=== PATIENT | female | born 1975 | race African-American/Black ===

== ENCOUNTER 2025-05-27 15:25 | Inpatient (IN) | payer OTHER, SELFPAY ==
[2025-05-27] VITALS (9 sets, daily range): BP systolic 120–151; BP diastolic 84–101; BMI 35.6
--- NOTE | 2025-05-27 10:44 | ED.GENMED ---
History of Present Illness
General
Chief Complaint: Change in Mental Status
Source: patient and other (Bedside RN)
Time Seen by Provider: 05/27/25 10:15
History of Present Illness
History of Present Illness:
This patient is a 49-year-old female presents emergency department with reported confusion. As per bedside RN who took report from EMS, the patient wandered into [facility] looking for her mother. However, she also recalls being with her
mother this morning, and cannot explain why she also thought her mother was in another location. History is very limited from patient. She answers only some questions and is noted to be yawning frequently. Accu-Chek via EMS was 93 and she was
reportedly incontinent. No tonic-clonic seizure activity reported. Patient does have a history of seizures.
Past History
Past History
ED Past Medical History: Other (Seizures, hypertension, diabetes)
Social History
Tobacco: Non-smoker
Alcohol: None
Drug: None
Living: with family
Phy Exam
Physical Exam
Physical Exam:
GENERAL: Alert , in no apparent distress, frequently yawns
EYE: pupils equal and reactive, EOMI, no photophobia
NECK: Supple, no significant adenopathy.
ENT: o/p clr, mmm.
CARDIAC: Regular rate and rhythm .
LUNGS: Clear breath sounds bilaterally, no acute respiratory distress, no wheezes/rales/rhonchi
ABDOMEN: Soft, without focal tenderness, no r/g
NEUROLOGICAL: Awake, speech clear, no facial droop, moves all extremities equally. Slow to answer many questions. Initially was incorrect regarding date. Initially was correct regarding location to the RN but was incorrect when describing her
location to me.
SKIN: Warm and dry, skin intact.
MUSCULOSKELETAL: No edema, well perfused.
PSYCH: Limited answering of questions, stares ahead often, otherwise normal and appropriate interaction.
Sepsis
Sepsis Screening
Sepsis Assessment: Sepsis Ruled Out
Sepsis Screen
Sepsis Screen: Sepsis Ruled Out
Date: 05/31/25
Time: 10:22
Course
Orders/Labs/Results
Orders:
Orders
05/27/25 05:25
Urine Drug Abuse Screen Urgent
Date Specimen was Collected: 05/29/25
Time Specimen was Collected: 05:24
05/27/25 10:27
CT Head W/o Iv Contrast Urgent
Comment:
Reason For Exam: mental status change
05/27/25 10:31
EKG [Electrocardiogram (*1)] Urgent
Reason for Study: Chest Pain
EKG- Treatment ONCE
05/27/25 10:33
Alcohol Urgent
C-Reactive Protein Urgent
Comment: ADD
Complete Blood Count/With Diff Urgent
Comprehensive Metabolic Panel Urgent
Erythrocyte Sed Rate Urgent
Comment: ADD
Ferritin Urgent
Comment: ADD
Folate Urgent
Comment: ADD
PTT Urgent
TSH Reflex To Free T4 Urgent
Comment: ADD
Vitamin B12 Urgent
Comment: ADD
05/27/25 12:36
EEG Routine Urgent
Reason for Exam: mental status change
05/27/25 12:52
Add On- LAB Routine
Tests Added?: folate, ferritin, TSH reflex, B12, ESR, ammonia
05/27/25 12:53
Levetiracetam Injectable [Keppra] 3,000 mg IV NOW STA
05/27/25 13:11
Ammonia Urgent
05/27/25 14:00
Thiamine HCl [Vitamin B1] 100 mg PO DAILY
05/27/25 14:55
Admit/Transfer Patient As Directed
Co-Sign Provider:
Level of Care: Inpatient admission
Assign to:: Telemetry
Physician / Group: hortencia kang
Diagnosis: acute confusion, seizure hx schizophrenia
Reason for Telemetry: Arrhythmia
Date to Stop Telemetry: 05/30/25
Time to Stop Telemetry: 11:00
Reason for Hospitalization: confusion seizure schizophrenia
Expected length of stay greater than two midnights?: Yes
ELOS- Estimated Length of Stay in days: 3
I certify the patient meets the requirements for IP care: Yes
Code Status As Directed
Resuscitation Status: Full Code
05/27/25 14:59
PRN Pain Medication Management As Directed
May give lesser potent ordered pain med per pt: Yes
preference::
Protocol:: Medication orders for pain may be administered in a
manner that supports deferring to patient preference
when the pt is:
- Requesting an ordered lesser potent pain medication.
Least to most potent pain medications are defined
as: acetaminophen < NSAID < tramadol < opioids
(morphine, oxycodone, hydromorphone).
- Requesting a lesser dose of the same medication IF
ORDERED.
- Requesting a less intrusive route of administration
if both routes are prescribed by the provider (PO <
IV).
05/27/25 Dinner
Regular
At Your Request: Full Participation
Does patient need a safe tray?: No
05/27/25 15:16
Consult Psychiatry [PSYCHIATRY CONSULT] Routine
Consulting Provider: Abdoulaye Mitchell
Was physician already notified: Yes
Reason for consult: Confusion found wandering history schizophrenia and seizures
05/27/25 17:11
Acetaminophen [Tylenol] 650 mg PO Q4HPRN PRN
05/27/25 17:11
Case Management Consult ONCE
Case Management Consult: Discharge Planning
Requested By:: OTHER
Comment: pt found wandering from [place]. I spoke with Inez from [facility] who takes care of her
[phone] she will need to be called to help arrange aftercare as the pt lives alone in
[place] and her sibliings are
Activity As Directed
Activity Level: As Tolerated
Pneumatic Compression Sleeves As Directed
Type: Knee high
Vital Signs As Directed
Frequency: Per unit guidelines
Pt Eval And Treat Routine
Activity Level: As Tolerated
DX Deep Vein Thrombosis Video Routine
05/27/25 20:00
Levetiracetam Injectable [Keppra] 1,000 mg IV Q12
05/27/25 22:00
Sertraline HCl [Zoloft] 100 mg PO HS
05/28/25 06:25
Comprehensive Metabolic Panel IN AM
Magnesium IN AM
05/28/25 08:00
Amlodipine [Norvasc] 10 mg PO DAILY
Aripiprazole [Abilify] 10 mg PO DAILY
05/28/25 08:19
Complete Blood Count/With Diff IN AM
05/29/25 08:33
Complete Blood Count/With Diff IN AM
Comprehensive Metabolic Panel IN AM
05/30/25 07:39
MR Brain W/o & With Contrast Routine
Reason For Exam: change in mental status
Recent pill cam endoscopy?: No
05/30/25 07:57
Complete Blood Count/With Diff IN AM
Comprehensive Metabolic Panel IN AM
05/30/25 11:00
DC Protocol for Telemetry ONCE
Abnormal Lab Results
05/27/25 05/27/25
10:33 13:11
RBC 3.77 L 10^6/uL
(4.20-5.40)
Hgb 10.7 L g/dL
(12.0-16.0)
Hct 33.1 L %
(37.0-47.0)
MCHC 32.3 L g/dL
(33.0-37.0)
RDW 14.9 H %
(11.5-14.5)
Absolute Neuts (auto) 7.3 H 10^3/uL
(1.4-6.5)
Neutrophils % 76.4 H %
(42.2-75.2)
Lymphocytes % 16.8 L %
(20.5-51.1)
ESR 49 H mm/hour
(0-20)
Potassium 3.4 L mmol/L
(3.5-5.1)
BUN 18 H mg/dl
(7-17)
Creatinine 0.5 L mg/dL
(0.6-1.0)
AST 202 H U/L
(14-36)
Ammonia < 9 L umol/L
(9-30)
C-Reactive Protein 23.10 H mg/L
(0.0-10.00)
Folate > 20.0 H ng/ml
(2.76-20)
05/27/25 10:33
05/27/25 10:33
Vital Signs
Initial and Last Documented VS:
Initial Vital Signs
Pulse Resp BP Pulse Ox
103 22 127/88 96
05/27/25 10:15 05/27/25 10:15 05/27/25 10:15 05/27/25 10:15
Last Documented Vital Signs
Temp Pulse Resp BP Pulse Ox
97.9 F 85 20 154/101 99
05/31/25 07:30 05/31/25 07:30 05/31/25 07:30 05/31/25 07:30 05/31/25 07:30
*Pulse Oximetry
SaO2: 96
Oxygen Mode of Delivery: Room air
Patient hypoxic: no
*Critical Care Note
Total Time (30-74mins, 75-104mins- exclusive of procedures): Not Applicable
Update Note
Update Note:
Patient presents to the Emergency Department with _reported change in mental status
Number and Complexity of Problems Addressed at the Encounter
� Chronic conditions affecting care:
� Acute Exacerbation and/or Progression of Chronic Illness:
� Differential Diagnosis includes: But not limited to atypical seizure, electrolyte disorder, intracranial hemorrhage, etc. etc.
Amount and/or Complexity of Data to be Reviewed and Analyzed
� I performed an independent evaluation of and my interpretation is:
EKG: Read by me, normal sinus rhythm, normal rate, no acute ischemia
CT: Head read by radiology NAD
Xrays:
Laboratory Studies: Mild anemia at 10.7, no prior for comparison. Nonspecific mild AST elevation rest of LFTs are unremarkable. Minimal hypokalemia.
Other:
� Review of other/old records reveals: None available
� Clinical information was obtained by an independent historian: Patient gave me a phone number of her home however when I called it, I got an answering machine I did leave a message.
� Prescriptions/Medications Considered but not given:
� Further testing considered but not performed:
Risk of Complications and/or Morbidity or Mortality of Patient Management
� Social determinants of health affecting care:
� Discussion with other providers (PCP, Hospitalists, Consultants, etc):
� Escalation of care including admission/observation vs risk of discharge considered: 12:38 PM patient is much more conversant now, but still confused. She describes walking all night, but when I asked her more details she
states that she drove to [facility] to see her mother and the woman at the front door 'freaked out'. She is unclear who she lives with, and at one point told me it was her father, then at another point her siblings. She is unable to provide
other phone numbers for contact information. Case discussed with neurology via [place] text, I have ordered an EEG to rule out status and will continue closely monitoring.
1:26 PM Case discussed with hospitalist via [place] text for admission. EEG pending.
At this time, unclear specific etiology of patient's confusion although workup continues. She does not demonstrate signs of meningismus such as nuchal rigidity, photophobia, etc. Clinical suspicion low for infectious meningitis/encephalitis.
ED Attending Note
-
Portions of this chart may have been created with voice recognition software.� Occasional wrong word or��sound alike� substitutions may have occurred due to the inherent limitations of voice recognition software.
Discharge Plan
Departure
Patient Disposition: Admit
Date of Disposition: 05/27/25
Time of Disposition: 13:27
Admit to: Telemetry
Presentation/result/management discussed w/ accepting MD/DO: Hospitalist
Condition: Fair
Discharge Problem:
Altered mental status
Interventions
Interventions:
*Risk Screen - Suicide Last Done: 05/27/25 11:00
*General Assessment Last Done: 05/27/25 12:41
*Neglect/Abuse Screening Last Done: 05/27/25 12:42
*ED COVID-19 Vaccine History Last Done: 05/27/25 12:41
*Nursing Disposition Last Done: 05/27/25 17:15
ED-Psychological Assessment Last Done: 05/27/25 13:00
ED- Neurological Assessment Last Done: 05/27/25 15:57
ED Swallowing Screen Last Done: 05/27/25 15:57
Discharge Date and Time
Discharge Date/Time: 05/27/25 17:15
[2025-05-27 10:46] LABS: Hematocrit 33.1 % (37.0-47.0); Hemoglobin 10.7 g/dL (12.0-16.0); Mean Corp Hgb Conc. 32.3 g/dL (33.0-37.0); Mean Corpuscular Volume 87.8 fL (81.0-99.0); Nucleated Red Blood Cells % 0 %; Platelet Count 259 10^3/uL (130-400); Red Cell Dist. Width 14.9 % (11.5-14.5)
[2025-05-27 10:59] LABS: ALT (SGPT) 33 U/L (0-35); AST (SGOT) 202 U/L (14-36); Albumin 4.6 g/dl (3.5-5.0); Alkaline Phosphatase 77 U/L (38-126); Blood Urea Nitrogen 18 mg/dl (7-17); Calcium 9.3 mg/dl (8.4-10.2); Carbon Dioxide 22 mmol/L (22-30); Chloride 106 mmol/L (98-107); Glucose 95 mg/dl (70-99); Potassium 3.4 mmol/L (3.5-5.1); Sodium 138 mmol/L (135-145); Total Protein 7.9 g/dl (6.3-8.2); eGFR > 60.00
[2025-05-27 11:00] LABS: APTT 27.2 Sec (23.4-35.0)
--- NOTE | 2025-05-27 12:41 | CON.NEURO4 ---
Addendum entered and electronically signed by Ahsan Wilson MD 05/27/25 17:19:
Studies reviewed.
I have personally examined the patient. I reviewed and agree with the GARDEN TRACTOR MECHANIC's Note.
My addenda:
Awake, alert, interactive. No acute distress.
Speech halting with long pauses.
Follows 2-step requests w/o difficulty. No tremor.
Extra-ocular movements grossly intact.
Facial movements full and symmetric. Hearing intact to normal conversational volume.
Normal UE movements bilaterally.
Neck: full ROM.
Chest: no dyspnea
Heart: no JVD
Ext: (-) Clubbing, (-) Cyanosis, (-) Edema
IMPRESSIONS/RECOMMENDATIONS:
Abrupt onset of change in mental status
Etiology is unclear especially based on the patient's history of seizures as well as major depression with psychosis suggested by her use of aripiprazole. EEG did demonstrate sharp wave discharges, however, there was no evidence of recurrent
seizures
Load levetiracetam
Check MRI of brain
Attempt to obtain old records
Consider lumbar puncture based on MRI of brain results
Check blood work for metabolic abnormalities
Will continue to follow patient.
Original Note:
Consultation - Neurology 4
-
CONSULTING PHYSICIAN: Ahsan Wilson MD
REFERRING PHYSICIAN: ER/Dr. Becker
DICTATED BY: DIANNE Reyes
DATE/TIME OF REQUEST: 05/27/25
DATE/TIME OF CONSULTATION: 05/27/25
Reason for Consultation: Confusion
History of Present Illness:
This is a 49-year-old female who has presented to the hospital with confusion. Patient is unable to provide an accurate history and some of this information is obtained from medical records. She reports that feels confused, she was walking outside
in the rain all night. She walked into [facility] this morning looking for her mother, where she was noted to be confused prompting EMS to be called. Patient was reportedly yawning frequently. She notes that her brother and sister somewhat
recently and this has been upsetting. She denies any headache, dizziness, vision changes, speech/swallow difficulty, numbness, and weakness. She reports feeling fatigued and having some left-sided chest discomfort and feeling mildly short of breath.
She thinks she started having seizures one year ago but cannot recall any other details about this. She is reportedly taking levetiracetam.
Past Medical History: HTN, depression, Seizures?
Surgical History: Denies.
Family History: Reports sister and brother had seizures?
Social History: Denies tobacco, alcohol, and illicit drug use.
Allergies: Carrots.
Home Medications: Keppra, amlodipine.
Review of Symptoms:
Patient denies any fever, headache, GI or symptoms.
�Per the HPI.�All systems are reviewed negative except above.
Physical Exam:
The patient is afebrile, abdomen is nondistended, breathing is unlabored, skin is warm and dry, no edema.
Neurologic Examination:
The patient is awake, alert and oriented to month and year initially but then thought it was July, reports she is at [facility]. Next - . She is able to follow commands and answer some questions appropriately. There is
no aphasia or dysarthria. On cranial nerve assessment, pupils are 3 mm bilateral, round and reactive to light and accommodation. Visual rivas are full. Extraocular movements are intact. Facial sensations are intact and bilaterally symmetrical,
there is no facial asymmetry. Hearing is intact bilaterally to normal conversation volume. Tongue palate and uvula are midline. Sternocleidomastoid strengths are full bilaterally. Motor strengths are 5/5 bilateral upper and lower extremities on
medical research [place] scale. There is no drift. There is a somewhat rhythmic yawning and eye blinking. Deep tendon reflexes are 2+ bilateral upper and lower extremities and Babinski is absent bilaterally. Coordination is intact by finger to nose
bilaterally.
Lab Results: See below.
Neuro Imaging:
1. CT Head 05/27/25: No acute intracranial abnormality noted.
Differentials for the patient's presentation include:
1. Change in mental status; uncertain etiology, possibly seizures, possibly metabolic disturbance or structural brain abnormality.
Patient has the following risk factors for their symptoms: Reported hx of seizures
Recommendations:
-Provide a loading dose of Keppra x1 now. Then continue levetiracetam 1000mg IV twice a day.
-Urgent EEG pending.
-MRI brain pending.
-Neurological checks per unit guidelines.
-DVT prophylaxis.
Discussed patient care with: Dr. Wilson, the patient
Vital Signs and Labs
-
Vital Signs and Labs:
Vital Signs
Pulse Resp BP Pulse Ox
107 14 120/90 98
05/27/25 12:51 05/27/25 11:49 05/27/25 11:00 05/27/25 11:00
Lab Results
05/27/25 10:33
05/27/25 10:33
APTT 27.2 Sec (23.4-35.0) 05/27/25 10:33
Sodium 138 mmol/L (135-145) 05/27/25 10:33
Potassium 3.4 mmol/L (3.5-5.1) L 05/27/25 10:33
BUN 18 mg/dl (7-17) H 05/27/25 10:33
Glucose 95 mg/dl (70-99) 05/27/25 10:33
Calcium 9.3 mg/dl (8.4-10.2) 05/27/25 10:33
Vitamin B12 Cancelled 05/27/25 12:54
Medications
-
Active Medications
Generic Name Dose Route Start Last Admin
Trade Name Freq PRN Reason Stop Dose Admin
Thiamine HCl 100 mg 05/27/25 14:00
Thiamine 100 Mg Tablet PO 05/29/25 08:01
DAILY VICENTE
Home Medications
�Medication �Instructions �Recorded
amlodipine 10 mg tablet (Norvasc) 10 mg PO DAILY 05/27/25
aripiprazole 5 mg tablet (Abilify) 5 mg PO DAILY 05/27/25
levetiracetam 500 mg 500 mg PO DAILY 05/27/25
tablet,extended release 24 hr
(Keppra XR)
sertraline 100 mg tablet 100 mg PO HS 05/27/25
[2025-05-27] MEDS: KEPPRA 3000 MG IV (13:11)
[2025-05-27 13:31] LABS: Ammonia < 9 umol/L (9-30)
--- NOTE | 2025-05-27 13:45 | HPS.HSE ---
Addendum entered and electronically signed by Jenn Patten MD 05/27/25 15:47:
This is an addendum to H&P written by Daniela Chau on 05/27/2025. Patient seen and examined independently with CASTING PLUG ASSEMBLER.
49-year-old female past medical history of schizophrenia, seizures diagnosed a year ago, anxiety, depression, presenting after wandering into [facility] also with confusion for 2 days, urinary incontinence today with concern for seizure vs
uncontrolled schizophrenia.
Patient awake but not in touch with reality.
Vital signs show mild tachycardia.
Labs show negative ammonia level. Potassium 3.4. AST of 202. CRP of 23. Alcohol level negative. CT head shows no acute abnormality.
Patient was given Keppra 3000 mg.
There is concern for seizure. Neurology was consulted. Continue Keppra thousand twice daily. Thiamine given. EEG performed. MRI pending. UDS pending. Neurological checks per protocol. Psychiatry consulted. Potassium was repleted.
Addendum entered and electronically signed by DIANNE Yang 05/27/25 15:32:
Concern for seizure
Check MRI
per neuroneurochecks
Hypokalemia
K3.4
Will give KCl 40 mEq
Original Note:
Family Physician
-
Family Physician: INTERVIEWE UNKNOWN - PT NOT
Chief Complaint
-
Found altered, incontinent
History of Present Illness
49-year-old female who reportedly by EMS wandered into [facility] looking for her mother she believes she was with her mother this morning but is unsure why she thought her mother was in another location. According to EMS she was incontinent
when they found her with blood sugar of 93. I spoke with Inez from [facility] who takes care of her [phone] she will need to be called to help arrange aftercare as the pt lives alone in [place] and her sibliings are . She is
unsure how she wandered from [place] to [facility]. She reports she wandered off over a year ago but never this far. She also states she has history of schizophrenia and seizures that started over 1 year ago. She has an upcoming
appointment with a neurologist at [place] in July. Her human factors advisor lead Inez noted that she has been confused for the past 2 days she called asking for help with laundry on Saturday she then called back after the conversation and had no recollection
they spoke earlier that day and set up appointments. The patient is currently oriented to name however she has flights of ideas for states she lived in [place] then [place] then [place]. She believes she has been wandering since
yesterday but she does not know why. She also believes that her parents are alive however I spoke with Inez from [facility] who states they have never been able to locate any parents her brother and sister last year. She does live
independently in an apartment in [facility] follows with [facility] and non-[facility] team. Patient denies headache, fever, chills, sore throat, chest pain, palpitations, cough, abdominal pain, nausea, vomiting, diarrhea, urinary
symptoms
she does have past medical history of seizures, depression, anxiety, schizophrenia, hypertension.
Medical History
Past Medical History
Past Medical History: Reports Other
Additional Past Medical History:
seizures
depression
Anxiety
Schizophrenia
hypertension
Past Surgical History: Reports Other
Additional Past Surgical History:
Reports at 16 weeks many years ago in [facility]
Social History
Tobacco: Non-smoker
Alcohol: None
Drug: None
Personal: Single
Living: Alone
Employment: Disabled
Family History
Family History: Other (Brother and sister unsure parents believed to be )
Allergies / Home Medications
Allergies reflects when Allergies were last updated in [employer].
Home Medications with original date entered in [employer]
Allergy/Medication List:
Allergies
Allergy/AdvReac Type Severity Reaction Status Date / Time
carrot Allergy Unknown Verified 05/27/25 10:26
Home Medications
amlodipine 10 mg tablet (Norvasc) 10 mg PO DAILY 05/27/25
aripiprazole 5 mg tablet (Abilify) 10 mg PO DAILY 05/27/25
levetiracetam 500 mg tablet,extended release 24 hr (Keppra XR) 500 mg PO BID 05/27/25
sertraline 100 mg tablet 100 mg PO HS 05/27/25
Review of Systems
-
History Source: Patient and Other (EMS)
Constitutional: Reports Other (Confusion with flight of ideas); Denies Fever or Chills
EENT: Denies Sore Throat or Runny Nose
Respiratory: Denies Cough or Trouble Breathing
Cardiac: Denies Chest Pain, Diaphoresis, Palpitations or Syncope
Abdomen/GI: Denies Abdominal Pain, Nausea, Vomiting, Diarrhea, Constipated, Bloody Stools or Black Stools
: Reports Incontinence (Urine found by EMS); Denies Dysuria, Frequency, Flank Pain or Difficulty Voiding
Musculoskeletal: Denies Joint Pain or Edema
Skin: Denies Itching or Rash
Neurological: Denies Dizzy or Headache
Endocrine: Reports No Symptoms
Hematologic/Lymphatic: Reports No Symptoms
Psych: Reports Calm
Physical Exam
Vital Signs
Vital Signs
Pulse Resp BP Pulse Ox
107 14 120/90 98
05/27/25 12:51 05/27/25 11:49 05/27/25 11:00 05/27/25 11:00
Physical Exam
General: Comfortable and Conversant (However is confused with flight of ideas poor recall of events); No Pain, Fever or Chills
HEENT: NormoCephalic, Anicteric, Moist mucous membranes, Atraumatic, PERRLA, [place] Conjunctivae and No Ptosis
Respiratory: Clear; No Wheezes, Rales or Rhonchi
Cardiac: S1/S2 and Regular Rhythm; No Murmur, Rub, Gallop or Peripheral Edema
Breast: Deferred by me
GI: Soft, Non Tender, Non Distended, Normal Bowel Sounds and No Hepatosplenomegaly
Rectal: Deferred by Provider
Genito-urinary: Deferred by me
Musculoskeletal: No Clubbing, No Cyanosis and No Edema
Skin: Warm and Dry; No Rash
Neuro: Awake, Alert, Oriented (To name, place of living, [facility] binder caser), Nonfocal/grossly intact, Cranial Nerves Intact and No Sensory Deficits; No Slurred Speech, Facial Droop, Tremors or Sedated
Psych: Calm
Laboratory Results
-
05/27/25 10:33
05/27/25 10:33
Laboratory Results
APTT 27.2 Sec (23.4-35.0) 05/27/25 10:33
Total Bilirubin 1.1 mg/dl (0.2-1.3) 05/27/25 10:33
AST 202 U/L (14-36) H 05/27/25 10:33
ALT 33 U/L (0-35) 05/27/25 10:33
Alkaline Phosphatase 77 U/L (38-126) 05/27/25 10:33
Data Reviewed
-
Lab Data: Labs Reviewed by me
Impression/Plan
-
Impression/plan:
Admit to telemetry
#Acute confusion concern for seizure versus schizophrenia exacerbation
- Patient reportedly was confused for the past 2 days according to her human factors advisor lead Inez at [facility]
-Patient was found wandering into [facility] was also incontinent urine believes she has not had seizure meds in 1 to 2 days
- Will check EEG
- Check B12, TSH, urine drug screen
- Consult neurology
#Depression/anxiety
#Schizophrenia history
-Consult psychiatry
Continue Abilify 10 mg daily, Zoloft 100 mg at bedtime
HTN
Continue Norvasc 10 mg daily
DVT prophylaxis
SCDs
Full code
[2025-05-27 14:22] LABS: C-Reactive Protein 23.10 mg/L (0.0-10.00)
[2025-05-27 14:54] LABS: Ferritin 29.1 ng/ml (6.24-137)
--- NOTE | 2025-05-27 15:05 | EEG.RPT ---
Electroencephalogram Report
Recording
Date of EE05/27/25
Type of EEG: Routine
Length of EEG recordin minutes
Done with Video Recording: Yes
Patient Status: Emergency Room
Recording Conditions: Awake, Drowsy and Asleep
Hyperventilation Performed: No
Photic Stimulation Performed: Yes
Report
LESS THAN 1 HOUR REPORT
LESS THAN 1 HOUR EEG INTERPRETATION:
Mildly�moderately abnormal EEG due to rare, medium amplitude left frontocentral sharp waves
CLINICAL CORRELATION:
This study was mildly suggestive of a focal abnormality in the left frontal lobe. No electrical seizures were recorded.
Clinical correlation is advised.
METHODS:
A 21 channel digitized electroencephalogram (EEG) was performed in the emergency department. The 10/20 international system of electrode placement was used with ECG and lateral/vertical eye movements recorded. The Concert Window quantitative review system
was utilized.
ELECTROENCEPHALOGRAPHER IMPRESSION(S):
Quality of study
Good
Background
In maximal wakefulness, there was a medium amplitude, normal anterior-posterior voltage gradient of alpha frequency.
There were no significant asymmetries of background activity noted.
Sleep
Drowsiness present
Stage II sleep is characterized by K complexes and sleep spindles
Hyperventilation
Not performed
Photic Stimulation
No activation of the record
ECG
Unremarkable
Abnormal EEG Activity
Medium amplitude, rare left frontocentral (C3 maximal) sharp waves
[2025-05-27 15:25] LABS: Folate > 20.0 ng/ml (2.76-20); Vitamin B12 793 pg/ml (239-931)
[2025-05-27] MEDS: VITAMIN B1 100 MG PO (15:42)
[2025-05-27] MEDS: KCL 40 MEQ PO (15:42)
--- NOTE | 2025-05-27 17:30 | PTCARENOTE ---
05/27- Patient transferred and oriented to unit without issue. AAOX3 but forgetful and repetitive in telling history. Currently GCS=15. Skin CDI. Fully independent steady walker with full ROM, but due to mild confusion, may remain a standby
assist. Teley #21- currently Sinus Tachycardia. Denies any needs at this time.
[2025-05-27] MEDS: KEPPRA 1000 MG IV (21:58)
[2025-05-27] MEDS: FLUSH (NSS) 2 FLUSH IV (21:59)
[2025-05-27] MEDS: ZOLOFT 100 MG PO (21:59)
[2025-05-28 03:00] VITALS: BP 118/76
--- NOTE | 2025-05-28 04:29 | PTCARENOTE ---
Patient removed tele and INT. Educated on need for both. Bed alarm on bed. VAT team into restart IV access. Per day shift report 1:1 not needed. Patient continues with inconsistent responses to events. She is forgetful of place. She admits to
feeling down but denies wanting to harm self now or in the future. Patient unsteady ambulating to bathroom. Missed hat so unable to obtain urine specimen. Started on menses. Hygiene care provided. DRAFTING TECHNICIAN in to reassess. Patient more sleepy and
confused, not answering questions and stating she wants to sleep.
[2025-05-28 07:00] VITALS: BP 156/101
[2025-05-28 07:00] LABS: ALT (SGPT) 34 U/L (0-35); AST (SGOT) 184 U/L (14-36); Albumin 4.0 g/dl (3.5-5.0); Alkaline Phosphatase 72 U/L (38-126); Blood Urea Nitrogen 9 mg/dl (7-17); Calcium 9.4 mg/dl (8.4-10.2); Carbon Dioxide 24 mmol/L (22-30); Chloride 106 mmol/L (98-107); Estimated Creatinine Clearance > 125 ml/min; Glucose 110 mg/dl (70-99); Magnesium 1.8 mg/dl (1.6-2.3); Potassium 3.1 mmol/L (3.5-5.1); Sodium 138 mmol/L (135-145); Total Protein 7.3 g/dl (6.3-8.2); eGFR > 60.00
[2025-05-28 08:38] LABS: Hematocrit 33.1 % (37.0-47.0); Hemoglobin 11.2 g/dL (12.0-16.0); Mean Corp Hgb Conc. 33.8 g/dL (33.0-37.0); Mean Corpuscular Volume 84.4 fL (81.0-99.0); Nucleated Red Blood Cells % 0 %; Platelet Count 221 10^3/uL (130-400); Red Cell Dist. Width 14.5 % (11.5-14.5)
[2025-05-28] MEDS: KEPPRA 1000 MG IV ×2 (09:14→19:57)
--- NOTE | 2025-05-28 09:16 | W.PN.NEURO.1 ---
Addendum entered and electronically signed by Ahsan Wilson MD 05/28/25 15:33:
Studies reviewed.
I have personally examined the patient. I reviewed and agree with the BRAND MGR's Note.
My addenda:
Awake, interactive. No acute distress.
Speech bradyphrenic.
Follows 2-step requests w/ difficulty. No tremor.
Extra-ocular movements grossly intact.
Facial movements full and symmetric. Hearing intact to normal conversational volume.
Normal UE movements bilaterally.
Neck: full ROM.
Chest: no dyspnea
Heart: no JVD
Ext: (-) Clubbing, (-) Cyanosis, (-) Edema
IMPRESSIONS/RECOMMENDATIONS:
Abrupt onset of change in mental status
EEG evaluation no longer demonstrates abnormalities to match the patient's phenotype suggesting either intracranial abnormality which was not demonstrated by CT of the head or psychosis which the patient previously has a history of
Await MRI of brain, will order x-rays in hopes of facilitating this testing
Continue levetiracetam with consideration for replacement if the patient remains unchanged
Appreciate psychiatric evaluation
D/W patient
All questions answered.
Will continue to follow patient.
Original Note:
Today's Communication / Plan
-
.
Neuro Assessment/Plan
Assessment
IMPRESSIONS/RECOMMENDATIONS:
Abrupt onset of change in mental status
Etiology is unclear especially based on the patient's history of seizures as well as major depression with psychosis suggested by her use of aripiprazole. EEG did demonstrate sharp wave discharges, however, there was no evidence of recurrent
seizures, repeat EEG is unremarkable
-EEG 05/27/25: Mildly�moderately abnormal EEG due to rare, medium amplitude left frontocentral sharp waves.
-EEG 05/28/25: Unremarkable EEG for age
Plan
Continue levetiracetam 1000mg q12hrs
Check MRI of brain
Psychiatry evaluation
Attempt to obtain old records
Subjective/Objective
Subjective Data
Date of Service: May 28, 2025
No acute events overnight. Patient reports that she feels 'back to normal' today, but is not fluently answering questions.
Objective Data
Vital Signs
Temp Pulse Resp BP Pulse Ox
98.5 F 92 17 156/101 100
05/28/25 07:00 05/28/25 07:00 05/28/25 07:00 05/28/25 07:00 05/28/25 07:00
Lab Results
05/28/25 08:19
05/28/25 06:25
APTT 27.2 Sec (23.4-35.0) 05/27/25 10:33
Sodium 138 mmol/L (135-145) 05/28/25 06:25
Potassium 3.1 mmol/L (3.5-5.1) L 05/28/25 06:25
BUN 9 mg/dl (7-17) 05/28/25 06:25
Glucose 110 mg/dl (70-99) H 05/28/25 06:25
Calcium 9.4 mg/dl (8.4-10.2) 05/28/25 06:25
Vitamin B12 Cancelled 05/27/25 12:54
Patient Allergies
carrot Allergy (Verified 05/27/25 10:26)
Unknown
Review of Systems
-
History Source: Patient
EENT: Negative Decreased Vision or Swallowing Difficulty
Respiratory: Negative Cough or Trouble Breathing
Cardiac: Negative Chest Pain or Palpitations
Neuro: Negative Dizzy, Headache, Weakness, Numbness, Ataxia, Tremors or Speech Problem
Physical Exam
-
General: No Apparent Distress
Eyes: No Ptosis and PERRLA
HEENT: Normocephalic and Atraumatic
Neck: Full Range of Motion
Respiratory: No Dyspnea
GI: Non-distended
Skin: Warm and Dry
Extremities: No Clubbing, No Cyanosis and No Edema
Psych: Confused
Extended Neurological Exam
Mood & Affect: Negative Affect Unremarkable (flat affect)
Attention Span & Concentration: Awake, Alert, Interactive and Closes Eyes after Stimulation
Memory: Reduced
Tremor: Hand Tremor Absent and Head Tremor Absent
Involuntary Movement: None
Speech: Quality Unremarkable and Mildly Reduced Output
Cranial Nerves III, IV, : Extraocular Movement: Extraocular Movement Full in all Directions
Cranial Nerve VII: Facial Symmetry: Normal Facial Symmetry
Cranial Nerve VIII: Hearing: Unremarkable Hearing to Normal Conversational Volume
Cranial Nerves IX, X: Palate Movement: Palate Elevation Symmetric
Muscle Strength, Overall: Spontaneously Moves
Data Reviewed
-
CT Head: Report Reviewed and Image Reviewed
MRI Head: Pending
EEG: Pending
Reviewed with: Physician and Patient
[2025-05-28] MEDS: NORVASC 10 MG PO (09:17)
[2025-05-28] MEDS: VITAMIN B1 100 MG PO (09:17)
[2025-05-28] MEDS: ABILIFY 10 MG PO (09:18)
--- NOTE | 2025-05-28 09:45 | CM ---
I spoke to Tatiana Myers at [facility] in [place] [phone]. [facility] needs to be notified when pt is ready for discharge from the hospital and can assist with transportation back to pt's apartment in [place] if needed.
Information passed on to Sandra, Merchandise Displayer on [employer].
--- NOTE | 2025-05-28 10:32 | CM ---
position description manager reviewed patient's chart and met with patient this morning, per chart patient has suicide risk trigger and psychiatry have been consulted. position description manager spoke with Tatiana Myers [phone] program/supervisor home restoration service for ACT team this
morning, patient lives in supportive housing, is independent with adl's and ambulation, patient has various services through the ACT program, including a supportive employment case manager, assistance with transport to MD appointments, psych nurse on staff, patient self
medicates and does her own grocery shopping. Per Z[facility] ACT sr. manager marketing [phone] they will assist patient with transportation back to her apartment if cleared by physicians.
PCP: Namrata Lay
Pharmacy: [facility], [place].
[2025-05-28 11:18] VITALS: BP 153/95
--- NOTE | 2025-05-28 11:32 | EEG.RPT ---
Electroencephalogram Report
Recording
Date of EE05/28/25
Type of EEG: Routine
Length of EEG recordin minutes
Done with Video Recording: Yes
Patient Status: Inpatient
Recording Conditions: Awake, Drowsy and Asleep
Hyperventilation Performed: Yes
Photic Stimulation Performed: Yes
Report
LESS THAN 1 HOUR EEG INTERPRETATION:
Unremarkable EEG for age
CLINICAL CORRELATION:
A normal EEG does not rule out a diagnosis of epilepsy.
In comparison with the study performed 1 day ago, this study was more normal as sharp wave discharges were not demonstrated.
If clinical suspicion for seizure persists, a prolonged recording may be warranted.
Clinical correlation is advised.
METHODS:
A 21 channel digitized electroencephalogram (EEG) was performed using the 10/20 international system of electrode placement and one-lead of ECG recorded. The OptuLink quantitative EEG system was utilized.
ELECTROENCEPHALOGRAPHER IMPRESSION(S):
Quality of study
Good
Background
There was an unremarkable anterior-posterior voltage gradient of alpha frequency.
With eye opening the background activity changed to a low voltage mixture of frequencies.
There were no significant asymmetries of background activity noted.
Sleep
Drowsiness present
Stage 1 present
Stage 2 present
Hyperventilation
No activation
Photic Stimulation
No activation
ECG
Normal sinus rhythm
[2025-05-28] MEDS: KCL 40 MEQ PO (11:57)
--- NOTE | 2025-05-28 14:31 | CON.MD ---
Addendum entered and electronically signed by Abdoulaye Mitchell MD 05/28/25 14:48:
b12 folate tsh all done and normal relevant phone number joceline [phone] reportedly mother may be at [phone] not sure she needs to be called at present.
Original Note:
Consultation - Medical
-
patient seen chart reviewed. discussed with nursing and case mgt. also called joceline case fitter for non [employer] act [facility] program which cares for patient as well as [facility] doctor line . this consult was done today may 28 2025. the patient is a
49 year old woman dx with various diagnoses including schiz schizoaffective/bipolar type and depression. she resides at [facility] independent living program and lives in her own place. she administers her own meds but has a cm and the program provides
her with a number to call if issues and checks in on her from week to week. there is an rn a psych aide 's nurse navigator to help her. they noted she was not acting herself on saturday and were going to meet w her on saturday but she wound up here
first. she is described as generally very pleasant but has had several hospital stays six total since 2021 all on 's. she has hx of what sounds almost like fugue states...she takes off and is found somewhere as happened on this occasion. debi
is a poor historian but very pleasant. as she was enthusiastically eating her lunch, she told me she was here trying to 'visit gera' . i asked her where gera lived and she said [place] and handed me the paper she must have received from emt's
while transported here. she told me it was 1960. i asked her if she took medication she said 'yes' and 'yellow' and pointed to a yellow piece of fabric in the room and then began breathing into the monitoring tech box all the while smiling at me.
she offered no particular complaints. her meds include abilify 10 mg daily zoloft 100 mg daily ativan 2 mg q day and keppra 500 mg bid. from those caring for her they assume she stops taking them and these episodes occur. she has in some of these
episodes become catatonic not eating or drinking but has in general recovered
past psych hx see above
medical hx seizure disorder htn had taken norvasc at some point. mild anemia 10.7 hgb k 3.4 bun 18 cr nl crp 23 cat head okay mri not done at this point
fh not known
substance abuse denied
social alert oriented to person and [place] very pleasant and smiling. thought process a bit disorganized she did not verbalize delusions particularly to me today mood is cheerful affect not exactly appropriate to circumstance patient very
contented to be here cognition impaired insight judgment poor
dx schizophrenia
plan would restart her normal medications. staff tell me she can return to [facility] but there is no staff until saturday so that would be preferred. psych will follow add b12 folate tsh if not already done and ua reflex to culture and uds.
[2025-05-28 15:00] VITALS: BP 133/68
--- NOTE | 2025-05-28 16:06 | W.PN.UPDATE ---
Update Note
Progress Note Update
spoke with caseworker protective servicesmgr car see phone in a prior note. joceline reports patient is not only pleasant at baseline but fully oriented and 'with it' cognitively so her presentation yesterday and today is very much a departure from her norm. ordered ua
replaced usual meds.
--- NOTE | 2025-05-28 16:51 | W.PN.HOSP.TC ---
Today's Communication/Plan
-
Continue outpatient medicines
Assessment / Plan
Assessment / Plan
49-year-old female wandered to [facility] [place] looking for her mother she is also incontinent patient has a history of schizophrenia and seizures. She is followed with a neurologist at [facility] and has an appointment coming up in July. Malt Liquors Sales Representative
is Inez [phone]. [employer] Sales Representative noted that patient has been confused for the past 2 days and asking for help. Reportedly patient has no family she lives independently in an apartment [facility] follows with pathways and
non-[facility] ACT team.
Patient is pleasant and confused
cardiovascular system is most appreciated
Chest clear to auscultation next abdomen soft and nontender
OUTBOARD SYSTEM OPERATOR no focal, pleasant, able to answer some questions but gets tangential
# Confusion-MRI of the brain
EEG no seizures per discussion with neurology
# Hypokalemia-replace
# Elevated AST level with normal ALT-unclear if patient uses alcohol. No alcohol level detected here .follow
# Seizures-continue Keppra increased to 1 g mg twice daily
# Schizophrenia/depression-psychiatry evaluation. Continue sertraline. Patient also on Abilify
# Hypertension-continue Norvasc
# Obesity with a BMI of 35
# DVT prophylaxis-Lovenox
# Full code
Discussed with nursing
Spoke to case management
D/W OP case operator Inez -Keppra 1000 milligrams at bedtime, Abilify 10 mg daily, amlodipine 10 mg daily, loratadine 10 mg daily, melatonin 10 mg at bedtime, sertraline 100 mg daily
Part of this note was created using voice recognition system. Occasional wrong word or��sound alike� substitutions may have inadvertently occurred due to the inherent limitations of voice recognition software. If noted kindly bring it to my
attention for correction.
Anticipated Discharge: 24 - 48 hours
Subjective/Interval History
-
Date of Service: May 28, 2025
Objective Data
-
Labs:
Laboratory Results
05/28/25 05/28/25
06:25 08:19
WBC 5.5
Hgb 11.2 L
Hct 33.1 L
Plt Count 221
Sodium 138
Potassium 3.1 L
Chloride 106
Carbon Dioxide 24
BUN 9
Creatinine 0.5 L
Glucose 110 H
Calcium 9.4
Total Bilirubin 1.2
AST 184 H
ALT 34
Alkaline Phosphatase 72
Vital Signs:
Vital Signs
Temp Pulse Resp BP Pulse Ox
98.2 F 88 17 133/68 98
05/28/25 15:00 05/28/25 15:00 05/28/25 15:00 05/28/25 15:00 05/28/25 15:00
I&O
05/27/25 05/28/25 05/29/25
06:59 06:59 06:59
Intake Total 360 / 360
Balance 360 / 360
[2025-05-28 20:06] VITALS: BP 134/89
[2025-05-28] MEDS: ZOLOFT 100 MG PO (21:06)
[2025-05-28] MEDS: TYLENOL 650 MG PO (22:36)
[2025-05-28 23:17] VITALS: BP 127/69
[2025-05-29 02:55] VITALS: BP 155/90
[2025-05-29 05:48] LABS: Urine Character Cloudy (Clear)
[2025-05-29 06:31] LABS: Urine Squamous Cell >30 /LPF (Few)
[2025-05-29 06:32] LABS: Urine Red Blood Cell >100 /HPF (0-2); Urine White Cell 0-2 /HPF (0-5)
[2025-05-29 07:00] VITALS: BP 150/118
[2025-05-29] MEDS: VITAMIN B1 100 MG PO (08:27)
[2025-05-29] MEDS: NORVASC 10 MG PO (08:27)
[2025-05-29] MEDS: ABILIFY 10 MG PO (08:27)
[2025-05-29] MEDS: KEPPRA 1000 MG IV (08:28)
[2025-05-29 09:18] LABS: Hematocrit 32.8 % (37.0-47.0); Hemoglobin 11.1 g/dL (12.0-16.0); Mean Corp Hgb Conc. 33.8 g/dL (33.0-37.0); Mean Corpuscular Volume 86.5 fL (81.0-99.0); Nucleated Red Blood Cells % 0 %; Platelet Count 269 10^3/uL (130-400); Red Cell Dist. Width 14.6 % (11.5-14.5)
[2025-05-29 09:36] LABS: ALT (SGPT) 31 U/L (0-35); AST (SGOT) 192 U/L (14-36); Albumin 4.2 g/dl (3.5-5.0); Alkaline Phosphatase 75 U/L (38-126); Blood Urea Nitrogen 5 mg/dl (7-17); Calcium 9.2 mg/dl (8.4-10.2); Carbon Dioxide 27 mmol/L (22-30); Chloride 105 mmol/L (98-107); Estimated Creatinine Clearance > 125 ml/min; Glucose 125 mg/dl (70-99); Potassium 3.4 mmol/L (3.5-5.1); Sodium 140 mmol/L (135-145); Total Protein 7.4 g/dl (6.3-8.2); eGFR > 60.00
--- NOTE | 2025-05-29 13:37 | W.PN.HOSP.TC ---
Today's Communication/Plan
-
Continue psychiatric medicines adjustments
MRI
Assessment / Plan
Assessment / Plan
49-year-old female wandered to [facility] looking for her mother she is also incontinent patient has a history of schizophrenia and seizures. She is followed with a neurologist at [place] and has an appointment coming up in July. Professional Services Specialist
is Inez [phone]. Professional Services Specialist noted that patient has been confused for the past 2 days and asking for help. Reportedly patient has no family she lives independently in an apartment [facility] follows with pathways and
non-[facility] ACT team.
Patient is pleasant and confused
cardiovascular system is most appreciated
Chest clear to auscultation next abdomen soft and nontender
MATERIAL REPROCESSING ASSOCIATE no focal, pleasant, able to answer some questions but gets tangential
# Confusion-MRI of the brain pending
EEG no seizures per discussion with neurology
But I think this is all related to her psychiatric illness-unclear if patient was compliant with her medicines.
# Abnormal urinalysis-patient has her periods on.
# Hypokalemia-replace
# Elevated AST level with normal ALT-unclear if patient uses alcohol. No alcohol level detected here ,follow
Ultrasound of the abdomen-mild diffuse liver disease no evidence of cholelithiasis or biliary obstruction.
Hep check hepatitis panel
# Seizures-continue Keppra increased to 1 g mg twice daily
# Schizophrenia/depression-psychiatry evaluation. Continue sertraline. Patient also on Abilify
# Hypertension-continue Norvasc
# Obesity with a BMI of 35
# DVT prophylaxis-Lovenox
# Full code
Discussed with nursing
05/28/25-D/W OP corrections caseworker Inez -Keppra 1000 milligrams at bedtime, Abilify 10 mg daily, amlodipine 10 mg daily, loratadine 10 mg daily, melatonin 10 mg at bedtime, sertraline 100 mg daily
Part of this note was created using voice recognition system. Occasional wrong word or��sound alike� substitutions may have inadvertently occurred due to the inherent limitations of voice recognition software. If noted kindly bring it to my
attention for correction.
Anticipated Discharge: 24 - 48 hours
Subjective/Interval History
-
Date of Service: May 29, 2025
Objective Data
-
Labs:
Laboratory Results
05/29/25
08:33
WBC 5.2
Hgb 11.1 L
Hct 32.8 L
Plt Count 269 D
Sodium 140
Potassium 3.4 L
Chloride 105
Carbon Dioxide 27
BUN 5 L
Creatinine 0.5 L
Glucose 125 H
Calcium 9.2
Total Bilirubin 0.5
AST 192 H
ALT 31
Alkaline Phosphatase 75
Vital Signs:
Vital Signs
Temp Pulse Resp BP Pulse Ox
98.4 F 95 17 150/118 98
05/29/25 07:00 05/29/25 07:00 05/29/25 07:00 05/29/25 07:00 05/29/25 07:00
I&O
05/28/25 05/29/25 05/30/25
06:59 06:59 06:59
Intake Total 1620 / 1620 240 / 240
Balance 1620 / 1620 240 / 240
[2025-05-29] MEDS: KCL 40 MEQ PO (14:05)
--- NOTE | 2025-05-29 14:07 | W.PN.UPDATE ---
Update Note
Progress Note Update
Patient from the mental health stand point is stable, she is not agitated or psychotic. She has poor reality testing and frequent illogical thinking. Denies hepression hopelessness or suicidal thoughts.
When medically stable she can return to her program. I would continue current psychotropic meds.
[2025-05-29 15:00] VITALS: BP 139/83
[2025-05-29] MEDS: KEPPRA IV ×2 (20:20→21:10)
[2025-05-29 20:49] LABS: Hepatitis B Surface Antigen Positive (Negative)
[2025-05-29] MEDS: ZOLOFT 100 MG PO (21:02)
[2025-05-29 21:06] LABS: Hepatitis A Antibody, Total Positive (Negative); Hepatitis C Antibody Negative (Negative)
--- NOTE | 2025-05-29 22:29 | W.PN.UPDATE ---
Update Note
Progress Note Update
2129 Alerted by RN that pt was found with own medications (keppra, sertraline, ariprazole and fecal immunochemical test (FIT). She told nurse she has been taking her own meds since admit and we too have been giving her same meds unknowingly.
Medication cup had more keppra that what she is prescribed. She stated she was 'sad' and that's wanted to hurt herself by taking those pills. Medication and bottle taken by RN. Will make 1:1 for possibly wanting to hurt herself by taking excess
medication. Unclear what she took prior to RN walking into room. Add on keppra level for am.
[2025-05-29 23:21] VITALS: BP 133/81
[2025-05-30 03:00] VITALS: BP 158/101
[2025-05-30] MEDS: TYLENOL 650 MG PO (03:00)
--- NOTE | 2025-05-30 03:12 | PTCARENOTE ---
During med pass, this RN found patient with her personal medications laid out on the table, approximately 6-7 pills split in half. Patient stated 'it's my apple candy.' This RN proceeded to inspect patient's belongings, with the patient's
permission, and found three bottles of her home medications. Pt sated ' I have been taking my apple candy everyday.' This RN asked the patient if she feels sad and want to hurt herself, patient stated ' I am sad, I want to take the apple candy to
hurt myself.' Patient with inconsistent responses throughout the conversation. Charge Nurse Fanta, Fire And Safety Helper, and ENGINEERING TEAM SUPERVISOR Xochitl were all notified. [place] security were also notified, and with patient's permission, searched her belongings. CHICA Ramirez
placed an order for 1:1 supervision.This RN provided education, plan of care ongoing. 1:[address] Patient's home medications were taken to Pharmacy.
[2025-05-30 07:20] VITALS: BP 157/106
[2025-05-30] MEDS: NORVASC 10 MG PO (07:33)
[2025-05-30] MEDS: ABILIFY 10 MG PO (07:33)
[2025-05-30 08:45] LABS: Hematocrit 35.0 % (37.0-47.0); Hemoglobin 11.6 g/dL (12.0-16.0); Mean Corp Hgb Conc. 33.1 g/dL (33.0-37.0); Mean Corpuscular Volume 87.5 fL (81.0-99.0); Nucleated Red Blood Cells % 0 %; Platelet Count 284 10^3/uL (130-400); Red Cell Dist. Width 14.6 % (11.5-14.5)
[2025-05-30 09:06] LABS: ALT (SGPT) 34 U/L (0-35); AST (SGOT) 207 U/L (14-36); Albumin 4.6 g/dl (3.5-5.0); Alkaline Phosphatase 81 U/L (38-126); Blood Urea Nitrogen 4 mg/dl (7-17); Calcium 9.7 mg/dl (8.4-10.2); Carbon Dioxide 30 mmol/L (22-30); Chloride 103 mmol/L (98-107); Estimated Creatinine Clearance > 125 ml/min; Glucose 135 mg/dl (70-99); Potassium 3.6 mmol/L (3.5-5.1); Sodium 141 mmol/L (135-145); Total Protein 8.2 g/dl (6.3-8.2); eGFR > 60.00
[2025-05-30] MEDS: KEPPRA IV (09:25)
[2025-05-30 11:00] VITALS: BP 146/102
[2025-05-30] MEDS: KEPPRA 1000 MG PO (11:57)
[2025-05-30 12:00] VITALS: BP 158/101
--- NOTE | 2025-05-30 14:29 | W.PN.HOSP.TC ---
Today's Communication/Plan
-
Await Keppra levels
Outpatient GI evaluation
Psychiatric plans are still awaited.
Patient may need intensive monitoring as outpatient in terms of her medicines. Will discuss with psychiatry as well as patient's adult protective caseworker tomorrow.
Assessment / Plan
Assessment / Plan
49-year-old female [facility] she is also incontinent patient has a history of schizophrenia and seizures. She is followed with a neurologist at [place] and has an appointment coming up in July. Concrete Rod Buster
is Inez [phone]. Concrete Rod Buster noted that patient has been confused for the past 2 days and asking for help. Reportedly patient has no family she lives independently in an apartment [facility] follows with pathways and
non-[facility] ACT team.
Patient is pleasant and confused
cardiovascular system is most appreciated
Chest clear to auscultation next abdomen soft and nontender
INDUSTRIAL/ORGANIZATIONAL PSYCHOLOGIST no focal, pleasant, able to answer some questions but gets tangential
# Confusion-MRI of the brain normal
EEG no seizures per discussion with neurology
But I think this is all related to her psychiatric illness-unclear if patient was compliant with her medicines.
# Abnormal urinalysis-patient has her periods on. She denies any symptoms
# Hypokalemia-replaced
# Elevated AST level with normal ALT-unclear if patient uses alcohol. No alcohol level detected here ,follow
Ultrasound of the abdomen-mild diffuse liver disease no evidence of cholelithiasis or biliary obstruction.
Hepatitis panel noted. Core hepatitis B antibody positive and surface antigen positive she may be a carrier for remote infection. Discussed with GI. Patient needs viral load and further GI follow-up as outpatient to see if she needs treatment. I
will communicate this with patient's geriatric social work professor tomorrow
# Seizures-continue Keppra increased to 1 g mg twice daily
# Schizophrenia/depression-psychiatry evaluation. Continue sertraline. Patient also on Abilify
# Hypertension-continue Norvasc
# Obesity with a BMI of 35
# DVT prophylaxis-Lovenox
# Full code
Discussed with nursing
Patient was taking medicines on her own it is unclear what she took when but she did not. Medicine bottles were sent down to pharmacy. Keppra levels were sent. Patient did not receive any Keppra last night. Was restarted today. Unfortunately
Keppra level is a send out and will take days to be back. She does not seem to have any symptoms and medically stable.
Patient does not know how many tablets of Keppra to take daily she thinks she was supposed to take 3 tablets a day and does not know the name of other medicines. This makes me wonder if she is taking her medicines right. Someone may need to
supervise her as outpatient after discharge to administer medicines
05/28/25-D/W OP assistant case manager Inez -Keppra 1000 milligrams at bedtime, Abilify 10 mg daily, amlodipine 10 mg daily, loratadine 10 mg daily, melatonin 10 mg at bedtime, sertraline 100 mg daily
Part of this note was created using voice recognition system. Occasional wrong word or��sound alike� substitutions may have inadvertently occurred due to the inherent limitations of voice recognition software. If noted kindly bring it to my
attention for correction.
Anticipated Discharge: Within 24 hours
Subjective/Interval History
-
Date of Service: May 30, 2025
Objective Data
-
Labs:
Laboratory Results
05/30/25
07:57
WBC 5.2
Hgb 11.6 L
Hct 35.0 L
Plt Count 284
Sodium 141
Potassium 3.6
Chloride 103
Carbon Dioxide 30
BUN 4 L
Creatinine 0.5 L
Glucose 135 H
Calcium 9.7
Total Bilirubin 0.5
AST 207 H
ALT 34
Alkaline Phosphatase 81
Vital Signs:
Vital Signs
Temp Pulse Resp BP Pulse Ox
98.1 F 91 18 157/106 92
05/30/25 07:20 05/30/25 07:33 05/30/25 07:20 05/30/25 07:33 05/30/25 07:20
I&O
05/29/25 05/30/25 05/31/25
06:59 06:59 06:59
Intake Total 1620 / 1620 240 / 240
Balance 1620 / 1620 240 / 240
--- NOTE | 2025-05-30 16:07 | CM ---
Chart reviewed, events of weekend noted, and patient is currently on 1:1, will follow up with psychiatry.
Plan; To follow with patient progress and follow up with psychiatry.
[2025-05-30] MEDS: ZOLOFT PO ×2 (22:28→23:41)
[2025-05-30] MEDS: KEPPRA PO ×2 (22:28→23:41)
[2025-05-30] MEDS: KEPPRA 1000 MG IV (23:44)
[2025-05-30 23:57] VITALS: BP 156/101
--- NOTE | 2025-05-31 01:21 | W.PN.UPDATE ---
Update Note
Progress Note Update
pt refusing to take evening dose of keppra. Will give one dose iv.
[2025-05-31 07:30] VITALS: BP 154/101
--- NOTE | 2025-05-31 08:20 | W.PN.HOSP.TC ---
Today's Communication/Plan
-
For discharge to In-patient psych facility
Assessment / Plan
Assessment / Plan
# Altered mental status
Schizophrenia vs seizure activity vs Drug side effect
-MRI of the brain normal
EEG no seizures per discussion with neurology
-Seen by Psychiatry
To have PO Abilify or IM Haloperidol if not taking PO
Give IV Ativan 1mg stat
Patient had a quick response to Diazepam given and is to be transferred to in-patient psych facility
# Abnormal urinalysis-
Patient has her periods on.
Urine culture, mixed joel, likely contaminant
Asymptomatic
# Hypokalemia-
Replaced, now 3.6 (3.1/3.4)
# Elevated AST level with normal ALT
-Unclear etiology
Ultrasound of the abdomen-mild diffuse liver disease no evidence of cholelithiasis or biliary obstruction.
Core hepatitis B antibody positive and surface antigen positive will need viral load and further GI follow-up as outpatient to see if she needs treatment.
# Seizures disorder
Keppra now 1 g mg twice daily
# Hypertension-
-Continue Norvasc
# Obesity with a BMI of 35
# DVT prophylaxis-Lovenox
# Full code
Anticipated Discharge: Today
Subjective/Interval History
-
Date of Service: May 31, 2025
49-year-old female past medical history of schizophrenia, seizures diagnosed a year ago, anxiety, depression, presenting after wandering into [facility] also with confusion for 2 days, urinary incontinence.
She was taught to have been taking her home meds herself while still being given meds by the nurses. She stated she was 'sad' and that's wanted to hurt herself by taking those pills, currently has a 1:1 sitter, he says she was interactive this
morning and had her breakfast.
She also refused last night medication and was given IV.
This morning, she is not interactive to conversations. Can follow command (like lift your hands)
Also inappropriate behavior; laughing, rapid blinking, pin-rolling and moving her legs
Objective Data
-
Vital Signs:
Vital Signs
Temp Pulse Resp BP Pulse Ox
99 F 104 24 156/101 100
05/30/25 23:57 05/30/25 23:57 05/30/25 23:57 05/30/25 23:57 05/30/25 23:57
I&O
05/30/25 05/31/25 06/01/25
06:59 06:59 06:59
Intake Total 240 / 240 1080 / 1080
Balance 240 / 240 1080 / 1080
Physical Exam
-
Respiratory: Clear to Auscultation
Cardiac: Regular Rhythm and S1/S2
--- NOTE | 2025-05-31 09:30 | PTCARENOTE ---
upon assessment, patietn unable to open her eyes and/or speak. Patient's eyes are rolled back but she is following commands and intentionally moving all extremities. BP 176/109, HR 105. Provider notified. No concern for seizure due to patient's
ability to follow commands. Patient unable to take oral medications. IV dose of Keppra requested.
[2025-05-31] MEDS: KEPPRA 1000 MG IV (10:01)
[2025-05-31] MEDS: ABILIFY PO ×2 (10:02→10:13)
[2025-05-31] MEDS: NORVASC PO ×2 (10:02→10:13)
[2025-05-31] MEDS: KEPPRA PO (10:32)
--- NOTE | 2025-05-31 11:50 | CM ---
Addendum entered by Sandra Calles 05/31/25 16:04:
Patient has been approved through [facility] [phone]. Dominguez for 5 days Auth inpatient psychiatry stay at [place] [facility] today, [address] today, will need ambulance transport.
[facility] [address]
Report [phone]

Addendum entered by Sandra Calles 05/31/25 15:37:
Patient has been accepted at [facility] inpatient psych today, waiting on Auth from [facility] [phone].
Addendum entered by Sandra Calles 05/31/25 14:01:
Plan is for inpatient treatment, 201 voluntary commitment has been completed and patient is agreeable to [facility], referral sent to [place] [phone], .
Original Note:
print shop manager spoke with Tatiana Myers Swimming Pool Salesperson for [facility] this morning by phone and Tatiana munroe to hospital to see elan and review for the ACT team. Tatiana and Yaneli catalytic case operator for ACT program are requesting a
referral to [facility] Per team at [facility], patient has been at [facility] in past, referral sent to [facility], , . print shop manager spoke with
Meg and is requesting all clinicals, labs on patient.
Plan; Possible inpatient treatment
--- NOTE | 2025-05-31 13:03 | W.PN.UPDATE ---
Addendum entered and electronically signed by Smith Nicole MD 05/31/25 14:01:
IV ativan not available, given IV valuim instead. Had immediate positive reponse, able to open eyes, discuss transfer, signed 201
Original Note:
Update Note
Progress Note Update
patient seen by me today, chart reviewed, discussed with Dr Mitchell, nursing staff, case making machine operator at bedside and REPTILE FARMER by phone. 49 yo woman made her way somehow from residence in [facility] to [place] for unknown reason. Has long history of
episodic periods of serious mental illness with most recent inpatient stay in October of 2024 for similar episode of altered mental status and responsiveness. was diagnosed with catatonic features, discharged on ativan--unclear if taking (also on
abilify and sertraline.) currently is not responding much, answers with one or two words and then closes eyes, need shakoiong to arouse.
at this point will need inpatient care to get back to responsiveness. Is eating and drinking so should be able to go to general unit.
When I attempted to get her to sign 201 (which she agreed to) pt now not responding (despite having just eaten lunch, mostly with eyes closed.)
Will give IV ativan in attempt to lessen catatonia.
Discussed with family practice physician assistant.
[2025-05-31] MEDS: VALIUM INJECTION 5 MG IV (13:28)
[2025-05-31] MEDS: ABILIFY 10 MG PO (13:47)
[2025-05-31] MEDS: NORVASC 10 MG PO (13:47)
--- NOTE | 2025-05-31 14:08 | W.PN.UPDATE ---
Addendum entered and electronically signed by Olga Bruce MD 05/31/25 15:17:
Keppra level was 7.1. Recently the dose was increased. No further changes as patient is clinically stable.
Original Note:
Update Note
Progress Note Update
I saw and evaluated the patient. I reviewed the resident�s note and agree with findings and plan as documented in the resident�s note except for changes in my documentation
Patient was not interactive close her eyes and preferred not to interact. Follows directions
Patient did have breakfast this morning has a one-to-one sitting with her
Medicines were given IV
Patient had good response after she received Valium for catatonia she has a history of catatonia in the past.
Cardiovascular system S1-S2 appreciated
Chest clear to auscultation send abdomen soft and nontender
# Confusion-MRI of the brain normal
EEG no seizures per discussion with neurology
But I think this is all related to her psychiatric illness-unclear if patient was compliant with her medicines.
Patient was catatonic today responded well to Valium
# Abnormal urinalysis-patient has her periods on. She denies any symptoms
# Hypokalemia-replaced
# Elevated AST level with normal ALT-unclear if patient uses alcohol. No alcohol level detected here ,follow
Ultrasound of the abdomen-mild diffuse liver disease no evidence of cholelithiasis or biliary obstruction.
Hepatitis panel noted. Core hepatitis B antibody positive and surface antigen positive she may be a carrier for remote infection. Discussed with GI. Patient needs viral load and further GI follow-up as outpatient to see if she needs treatment.
Spoke to patient's community mental health social worker Inez Benítez today regarding this. They will arrange for follow-up with GI in [place]. She requested discharge papers to be faxed to her so that it can be handed over to the PCP.
# Seizures-continue Keppra increased to 1 g mg twice daily, continue. Keppra levels are pending which will be back until tomorrow
# Schizophrenia/depression-psychiatry evaluation. Continue sertraline. Patient also on Abilify
# Hypertension-continue Norvasc
# Obesity with a BMI of 35
# DVT prophylaxis-Lovenox
# Full code
Discussed with nursing,, one-to-one, case management
Patient has been accepted for inpatient psychiatric treatment at [facility]
Discussed with outpatient community mental health social worker Inez Benítez
Requested discharge instructions to be faxed to her [phone]
More than 30 minutes spent in discharge including
Final examination of the patient
Summarizing hospital stay
Instructions for continuing care to all relevant caregivers
Preparation of discharge records, prescriptions, and referral forms
Total time spent (in minutes): 40 min
[2025-05-31 15:30] VITALS: BP 126/91
--- NOTE | 2025-05-31 16:29 | PTCARENOTE ---
This RN attempted to call report to CB at [facility]. VM left. Will attempt to call back within the hour, per the voice rain. # [phone]
--- NOTE | 2025-05-31 16:51 | PTCARENOTE ---
Report given to Ciarra at [facility] unit. IV removed. 1:1 maintained until discharge at 1930.
--- NOTE | 2025-05-31 17:13 | W.DCSUMMARY ---
Documented by User: Betty Sauceda MD, Resident 05/31/25 19:12
Discharge Summary
Discharge Data
Date of Admission: 05/27/25
Date of Discharge: 05/31/25
-
Pending Results: Yes (Levetiracetam blood levels )
Hospital Course
Discharging Physician : Betty Sauceda MD, Olga Pickering MD
Disposition : In-patient facility
Primary care physician : Unknown
Principal Discharge diagnosis : Schizoaffective/Bipolar typr, catatonia
Seizure disorder
Chronic Discharge diagnosis : Hypertension
Hospital Course :
This is a 49-year-old female who was brought in by the EMS to the [facility] ED 05/27/2025 after being found wondering in confusional state. She reported feeling fatigued and having some left-sided chest discomfort and feeling mildly short of breath
On presentation, she was awake and alert, her orientation to time and place fluctuated. Her speech was clear, she was slow to answer questions and yawned frequently. Sensory and motor functions were grossly intact.
She was admitted and seen in consultation with Neurology and Psychiatry
She had investigations done; CBC, BMP, Serology, Urinalysis, Urine toxicology, ECG, Chest and Abdominal Xray, Abdominal USS, Head CT, Brain MRI and EEG ruled out a possible medical etiology.
Her Hepatitis A total AB was positive and Hepatitis BsAg and Core antibodies
She continued to have fluctuating mental status. A plan was made for her transfer to an inpatient facility, which she consented to
She is to fu on out patient basis for hepatitis panel with pcp
Important imaging findings :
MR Brain W/o & With Contrast 05/30/2025
No MRI evidence for acute infarct or intracranial hemorrhage.
CT Head W/o Iv Contrast 05/27/2025
No acute intracranial abnormality noted
CXR 05/28/2025
No acute disease of the chest
No radiopaque foreign bodies are identified.
Abdominal XRAY 05/28/2025
Mild fecal matter throughout the colon. No evidence of intestinal obstruction.
No radiopaque foreign bodies noted in the abdomen.
ABD- USS 05/29/2025
Mild fecal matter throughout the colon. No evidence of intestinal obstruction.
No radiopaque foreign bodies noted in the abdomen.
Discharge Plan
-
Patient Disposition: Acute Care Hospital
Discharge Orders:
Discharge Patient (As Directed); Ordered 05/31/25
Ordered By: Betty Sauceda
Discharge Date and Time
Discharge Date/Time: 05/31/25 20:04
Print Language: GREENLANDIC

Documented by User: Olga Bruce MD 06/02/25 14:32
Discharge Summary
Discharge Data
Date of Admission: 05/27/25
Date of Discharge: 06/02/25
Hospital Course
Discharging Physician : Betty Sauceda MD, Olga Pickering MD
Disposition : In-patient facility
Primary care physician : Unknown
Principal Discharge diagnosis : Schizoaffective/Bipolar typr, catatonia
Seizure disorder
Chronic Discharge diagnosis : Hypertension
Hospital Course :
This is a 49-year-old female who was brought in by the EMS to the [facility] ED 05/27/2025 after being found wondering in confusional state. She reported feeling fatigued and having some left-sided chest discomfort and feeling mildly short of breath
On presentation, she was awake and alert, her orientation to time and place fluctuated. Her speech was clear, she was slow to answer questions and yawned frequently. Sensory and motor functions were grossly intact.
She was admitted and seen in consultation with Neurology and Psychiatry
She had investigations done; CBC, BMP, Serology, Urinalysis, Urine toxicology, ECG, Chest and Abdominal Xray, Abdominal USS, Head CT, Brain MRI and EEG ruled out a possible medical etiology.
Her Hepatitis A total AB was positive and Hepatitis BsAg and Core antibodies
She continued to have fluctuating mental status. A plan was made for her transfer to an inpatient facility, which she consented to
She is to fu on out patient basis for hepatitis panel with pcp and a pattern puncher as OP. This was communicated to the social work coordinator also.
Important imaging findings :
MR Brain W/o & With Contrast 05/30/2025
No MRI evidence for acute infarct or intracranial hemorrhage.
CT Head W/o Iv Contrast 05/27/2025
No acute intracranial abnormality noted
CXR 05/28/2025
No acute disease of the chest
No radiopaque foreign bodies are identified.
Abdominal XRAY 05/28/2025
Mild fecal matter throughout the colon. No evidence of intestinal obstruction.
No radiopaque foreign bodies noted in the abdomen.
ABD- USS 05/29/2025
Mild fecal matter throughout the colon. No evidence of intestinal obstruction.
No radiopaque foreign bodies noted in the abdomen.
Discharge Plan
-
Patient Disposition: Acute Care Hospital
Discharge Orders:
Discharge Patient (As Directed); Ordered 05/31/25
Ordered By: Betty Sauceda
Discharge Date and Time
Discharge Date/Time: 05/31/25 20:04
Print Language: GREENLANDIC
[2025-05-31] MEDS: VALIUM 2 MG PO (18:48)
[2025-05-31 19:45] VITALS: BP 154/105
== END 2025-05-31 20:04 | DRG 885 ==
LOC: 4 WEST ACU 15:25
PROVIDERS: Clinical Nurse Specialist Family Health; Nurse Practitioner Family; ADMITTING PHYSICIAN Hospitalist; ATTENDING PHYSICIAN Hospitalist; CONSULT PHYSICIAN Psychiatry & Neurology Neurology; CONSULT PHYSICIAN Psychiatry & Neurology Psychiatry; EMERGENCY PHYSICIAN Emergency Medicine
DX: F20.9 Schizophrenia, unspecified (principal); B19.10 Unspecified viral hepatitis B without hepatic coma; F20.2 Catatonic schizophrenia; R41.82 Altered mental status, unspecified; R32 Unspecified urinary incontinence; I10 Essential (primary) hypertension; E11.9 Type 2 diabetes mellitus without complications; G40.909 Epilepsy, unspecified, not intractable, without status epilepticus; E87.6 Hypokalemia; E66.9 Obesity, unspecified; F41.9 Anxiety disorder, unspecified; F32.A Depression, unspecified; Z60.2 Problems related to living alone; Z63.4 Disappearance and death of family member; Z91.018 Allergy to other foods; Z68.35 Body mass index [BMI] 35.0-35.9, adult
CPT/HCPCS: 70450; 70553; 71046; 74018; 76700; 80053; 80177; 80306; 81003; 81015; 82077; 82140; 82607; 82728; 82746; 83735; 84443; 85025; 85652; 85730; 86140; 86704; 86705; 86706; 86708; 86709; 86803; 87086; 87340; 93005; 95813; 95816; 97161; 97530; 99285; A9575